=== PATIENT | female | born 1960 | race Caucasian/White ===

== ENCOUNTER 2019-01-31 14:12 | Emergency (ER) | payer BC, MEDICAID ==
[~2019-01-31] VITALS: Ht 167.6 cm; Wt 88.9 kg
[~2019-01-31 14:12] MED LIST: IBUP-1542; PRED-248
[2019-01-31 14:18] VITALS: Ht 167.6 cm; Wt 88.9 kg
--- NOTE | 2019-01-31 19:33 | ERD ---
ER Documentation Chief Complaint Chief Complaint mid AP, N/V X 1 day, [place] [facility] [place] HPI This is a 59-year-old female who presents for evaluation of mid abdominal pain for 1 day. Patient states she was at [facility] yesterday, where she had labs and a CT scan, and was discharged with possible colitis, she is given a prescription for Cipro and Flagyl. She has not had a fever, she has nausea but no vomiting, she denies chest pain or shortness of breath. There are no alleviating or aggravating factors. She has not had any dysuria. ROS All systems reviewed and are negative except as per history of present illness. Medications Home Meds Active Scripts Ondansetron (Ondansetron Odt) 8 Mg Tab.rapdis, 8 MG PO Q6H PRN for NAUSEA AND/OR VOMITING for 7 Days, TAB Prov:VANDANA NGUYEN MD 01/31/19 Reported Medications Turmeric Root Extract (Turmeric) Unknown Strength Capsule, 1 CAP PO BID, CAP 01/31/19 Cholecalciferol (Vitamin D3) 5,000 Unit Tablet, 5000 UNIT PO DAILY, TAB 01/31/19 Esomeprazole Mag Trihydrate (Nexium) 40 Mg Capsule.dr, 40 MG PO DAILY, #30 CAP 01/31/19 Mirtazapine* (Mirtazapine*) 15 Mg Tablet, 15 MG PO HS PRN for NEEDED, TAB 01/31/19 Fenofibrate, Micronized (Fenofibrate) 134 Mg Capsule, 134 MG PO NEEDED, CAP 01/31/19 Methotrexate* (Methotrexate*) 2.5 Mg Tab, 8 TAB PO Q TUE, TAB 01/31/19 Carvedilol* (Carvedilol*) 25 Mg Tablet, 25 MG PO PRN, #60 TAB 01/31/19 Pravastatin Sodium* (Pravastatin Sodium*) 20 Mg Tablet, 20 MG PO PRN, TAB 01/31/19 Ibuprofen* (Ibuprofen*) 600 Mg Tablet, 600 MG PO DAILY, TAB 01/31/19 Folic Acid* (Folic Acid*) 1 Mg Tablet, 1 MG PO DAILY, TAB 01/31/19 Discontinued Reported Medications Ibuprofen* (Ibuprofen*) 600 Mg Tablet 01/24/11 Prednisone (Prednisone) 10 Mg Tablet 01/24/11 Allergies Allergies: Coded Allergies: No Known Drug Allergy (Verified Allergy, Mild, 01/31/19) PMhx/Soc History of Surgery: Yes (APPY) Anesthesia Reaction: No Hx Neurological Disorder: No Hx Respiratory Disorders: No Hx Cardiac Disorders: No Hx Psychiatric Problems: No Hx Miscellaneous Medical Probl: No Hx Alcohol Use: No Hx Substance Use: No Hx Tobacco Use: No Physical Exam Vitals Vital Signs Date Temp Pulse Resp B/P (MAP) Pulse Ox O2 O2 Flow FiO2 Time Delivery Rate 01/31/19 99.2 95 20 111/46 98 Room Air 19:44 (67) 01/31/19 99.2 87 18 127/60 98 14:18 (82) Physical Exam Const: No acute distress Head: Atraumatic Eyes: Normal Conjunctiva ENT: Normal External Ears, Nose and Mouth. Neck: Full range of motion. No meningismus. Resp: Clear to auscultation bilaterally Cardio: Regular rate and rhythm, no murmurs Abd: Soft, non tender, non distended. Normal bowel sounds Skin: No petechiae or rashes Back: No midline or flank tenderness Ext: No cyanosis, or edema Neur: Awake and alert Psych: Normal Mood and Affect Result Diagram: 01/31/19195101/31/191951 Results 24 hrs Laboratory Tests Test 01/31/19 19:52 White Blood Count 11.8 10^3/ul Red Blood Count 4.62 10^6/ul Hemoglobin 12.8 g/dl Hematocrit 39.1 % Mean Corpuscular Volume 84.6 fl Mean Corpuscular Hemoglobin 27.7 pg Mean Corpuscular Hemoglobin Concent 32.7 g/dl Red Cell Distribution Width 13.2 % Platelet Count 265 10^3/UL Mean Platelet Volume 10.3 fl Immature Granulocytes % 0.300 % Neutrophils % 70.6 % Lymphocytes % 23.6 % Monocytes % 5.2 % Eosinophils % 0.1 % Basophils % 0.2 % Nucleated Red Blood Cells % 0.0 /100WBC Immature Granulocytes # 0.040 10^3/ul Neutrophils # 8.3 10^3/ul Lymphocytes # 2.8 10^3/ul Monocytes # 0.6 10^3/ul Eosinophils # 0.0 10^3/ul Basophils # 0.0 10^3/ul Nucleated Red Blood Cells # 0.0 10^3/ul Urine Color YELLOW Urine Clarity CLEAR Urine pH 6.0 Urine Specific [place] 1.008 Urine Ketones NEGATIVE mg/dL Urine Nitrite NEGATIVE mg/dL Urine Bilirubin NEGATIVE mg/dL Urine Urobilinogen NEGATIVE mg/dL Urine Leukocyte Esterase 2+ Liseth/ul Urine Microscopic RBC 1 /HPF Urine Microscopic WBC 22 /HPF Urine Squamous Epithelial Cells FEW /HPF Urine Bacteria FEW /HPF Urine Hemoglobin NEGATIVE mg/dL Urine Glucose NEGATIVE mg/dL Urine Total Protein NEGATIVE mg/dl Sodium Level 143 mmol/L Potassium Level 4.0 mmol/L Chloride Level 104 mmol/L Carbon Dioxide Level 30 mmol/L Anion Gap 9 Blood Urea Nitrogen 12 mg/dl Creatinine 0.54 mg/dl Est Glomerular Filtrat Rate mL/min > 60 mL/min Glucose Level 110 mg/dl Calcium Level 9.3 mg/dl Total Bilirubin 0.5 mg/dl Direct Bilirubin 0.00 mg/dl Indirect Bilirubin 0.5 mg/dl Aspartate Amino Transf (AST/SGOT) 14 IU/L Alanine Aminotransferase (ALT/SGPT) 18 IU/L Alkaline Phosphatase 82 IU/L Troponin I < 0.012 ng/ml Total Protein 7.4 g/dl Albumin 4.1 g/dl Globulin 3.30 g/dl Albumin/Globulin Ratio 1.24 Lipase 70 U/L Current Medications Medications Dose Sig/Isabela Start Time Status Last (Trade) Ordered Route PRN Stop Time Admin Dose Reason Admin Morphine 4 mg ONCE STAT 01/31/19 DC 01/31/19 Sulfate IV 21:06 01/31/19 21:12 (morphine) 21:09 Ondansetron 4 mg ONCE STAT 01/31/19 DC 01/31/19 HCl (Zofran IV 21:06 01/31/19 21:12 Inj) 21:09 Morphine 4 mg STK-MED 01/31/19 DC Sulfate ONCE .ROUTE 21:10 01/31/19 (morphine) 21:11 Morphine 4 mg ONCE STAT 01/31/19 DC Sulfate IV 23:24 01/31/19 (morphine) 23:26 Ondansetron 4 mg ONCE STAT 01/31/19 DC HCl (Zofran IV 23:24 01/31/19 Inj) 23:26 500 mg ONCE STAT 01/31/19 DC Ciprofloxacin PO 23:24 01/31/19 (Cipro) 23:26 500 mg ONCE ONCE 01/31/19 DC Metronidazole PO 23:30 01/31/19 (Flagyl) 23:31 [place] [id number] Radiology Main Line: [phone] DIAGNOSTIC IMAGING REPORT Patient: AYESHA LOZANO : 1960 Age: 59 Sex: F MR #: [id number] DOS: 01/31/19 1933 Ordering MD: VANDANA NGUYEN MD Location: E/R Room/Bed: PROCEDURE: CT Abdomen and Pelvis without contrast. CLINICAL INDICATION: Abdominal pain. TECHNIQUE: Unenhanced CT scan of the abdomen and pelvis was performed on a multi-detector high-resolution CT scanner. Coronal and sagittal reformatted images were obtained from the axial source images. Images were reviewed on a high-resolution PACS workstation. The total exam CTDI equals 19.0 mGy and the total exam DLP equals 1174.5 mGy-cm. DICOM images are available. One or more of the following dose reduction techniques were utilized: 1.) Automated exposure control 2.) Adjustment of the mA +/- kV according to patient's size 3.) Use of iterative reconstruction technique. COMPARISON: 01/31/2019 at 03:14 a.m. Pelvic ultrasound 01/31/2019. FINDINGS: Partially visualized mild bibasilar pulmonary subsegmental atelectasis with redemonstrated mild focal peripheral scarring and traction bronchiectasis the lateral basilar right lower lobe (axial image 11). Heart base appears normal. Mild systemic atherosclerotic calcifications without abdominal aortoiliac aneurysmal dilatation. No pathologic lymphadenopathy identified by imaging criteria. Liver is normal in size and contour, demonstrating diffuse fatty infiltration without identifiable focal mass lesion in the absence of intravenous contrast. Cholelithiasis versus sludge in the mildly distended gallbladder without identifiable pericholecystic inflammatory change or extrahepatic biliary ductal dilatation. Mild fatty pancreatic atrophy slightly asymmetrically involves the head and uncinate process. Nonspecific mass-like ovoid soft tissue thickening at the pancreatic tail (axial image 59, coronal image 63, sagittal image 91) may reflect primary pancreatic neoplasm, pancreatic pseudocyst or splenule. Mild splenomegaly to 13.9 cm. Adrenal glands appear normal. Bowel is unobstructed without free air. The appendix is not definitely id entified, but there is no indirect evidence of acute appendicitis. Redemonstrated segmental wall thickening of the mid sigmoid colon with mild associated mesenteric fat stranding and trace dependent pelvic free fluid (axial image 151, coronal image 72, sagittal image 72) which may be infectious, inf lammatory or neoplastic in etiology. Few scattered tiny left colonic diverticuli redemonstrated. Kidneys demonstrate normal size, contour and orientation without identifiable focal mass lesion in the absence of intravenous contrast. Punctate 2 mm nonobstructive left interpolar calyceal calculus (axial image 72, coronal image 66) without hydronephrosis. The ureters run unobstructed to a normal - appearing incompletely distended bladder. The uterus appears age appropriate. No pathologic adnexal mass identified by imaging criteria. Osseous structures are stable with mild diffuse bony demineralization and mild multilevel spondylotic changes which appear most pronounced at L4-5 where there is disc collapse with mild - moderate bilateral neural foraminal stenosis, without identifiable significant midline canal stenosis, suboptimally evaluated by CT. Superficial soft tissues and musculature appear normal. IMPRESSION: 1. Redemonstrated segmental midsigmoid colitis, in the presence of mild diverticulosis which is most likely infectious or inflammatory in etiology although neoplasm is not excluded. Again, follow-up colonoscopy/sigmoidoscopy is recommended. 2. The bowel is unobstructed without evidence of perforation or abscess, and the appendix is nondilated. 3. Nonspecific mass-like ovoid soft tissue thickening at the pancreatic tail may reflect primary pancreatic neoplasm, pancreatic pseudocyst or splenule. Clinical correlation and further evaluation with pancreatic protocol multi phase enhanced CT or MRI recommended. 4. Mild splenomegaly. 5. Hepatosteatosis. 6. Cholelithiasis versus sludge in the mildly distended gallbladder without lisset evidence of acute cholecystitis. This can be better evaluated by right upper quadrant ultrasound if clinically warranted. 7. Punctate nonobstructive left nephrolithiasis without hydronephrosis. 8. Somewhat focally advanced spondylotic changes at L4-5 where there is disc collapse with mild - moderate bilateral neural foraminal stenosis. This can be better evaluated by MRI L-spine if clinically warranted. RPTAT: HSAN Physician Anastacio Date Time Electronically viewed and signed by Physician Anastacio on 01/31/2019 22:22 xN/ CC: VANDANA NGUYEN MD [id number] Procedures/MDM This is a 59-year-old female who presents for evaluation of abdominal pain, she had no peritoneal signs on abdominal exam, her CT abdomen pelvis showed possible colitis, again she had 22 WBCs, she had been discharged on Cipro and Flagyl, which would be adequate coverage for UTI as well as possible colitis. Her pain improved in the ED, I discussed plan of care in detail with family, and at this point she is stable for discharge home, she was given [place] as a prescription for pain control, I provided prescription for Zofran as well. I informed the family of findings in the pancreatic tail, which would need further evaluation with CT or MRI as an outpatient, the family understood, at discharge the patient was ambulatory and in no distress. EKG: Rate/Rhythm: Normal Sinus Rhythm QRS, ST, T-waves: No changes consistent w/ acute ischemia Impression: No evidence of ischemia or arrhythmia Departure Diagnosis: Primary Impression: Abdominal pain Abdominal location: unspecified location Qualified Codes: R10.9 - Unspecified abdominal pain Condition: Stable VANDANA NGUYEN MD January 31, 2019 19:33
[2019-01-31 19:44] VITALS: BP 111/46; PULSE 95; RESP 20
[2019-01-31] MEDS ORDERED: FOLI-49 PO (20:47)
[2019-01-31] MEDS ORDERED: IBUP-1542 PO (20:47)
[2019-01-31] MEDS ORDERED: PRAV20TA63 PO (20:48)
[2019-01-31] MEDS ORDERED: CARV25TA79 PO (20:49)
[2019-01-31] MEDS ORDERED: MET25 PO (20:49)
[2019-01-31] MEDS ORDERED: FENO134C PO (20:50)
[2019-01-31] MEDS ORDERED: ESOM40CA PO (20:51)
[2019-01-31] MEDS ORDERED: MIRT15TA5 PO (20:51)
[2019-01-31] MEDS ORDERED: CHOL500010 PO (20:52)
[2019-01-31] MEDS ORDERED: TURM500C9 PO (20:53)
[2019-01-31] MEDS ORDERED: ONDANSETRON 4 MG INJ IV STA ×2 (21:06→23:24)
[2019-01-31] MEDS ORDERED: morphine 4 MG/ML VIAL IV STA ×2 (21:06→23:24)
[2019-01-31] MEDS ORDERED: morphine 4 MG/ML VIAL ONE (21:10)
[2019-01-31] MEDS ORDERED: CIPROFLOXACIN 500 MG TAB PO STA (23:24)
[2019-01-31] MEDS ORDERED: ONDA8TAB14 PO (23:26)
[2019-01-31] MEDS ORDERED: metroNIDAZOLE 500 MG TAB PO ONE (23:30)
== END 2019-02-01 00:05 | disposition home or self-care (01) ==
LOC: E/R 14:12
DX: R10.9 Unspecified abdominal pain (principal)
CPT/HCPCS: 36415; 74176; 80053; 81001; 83690; 84484; 85025; 93005; 96374; 96375; 96376; J2270; J2405; Z7502; Z7610